=== PATIENT | female | born 1930 | race Two or more races ===

== ENCOUNTER 2017-05-30 21:48 | Emergency (ER) | payer OTHER ==
[~2017-05-30] VITALS: Ht 149.9 cm; Wt 55.8 kg
[~2017-05-30 21:48] MED LIST: ACID CONTROL20 MG; ASPIR 8181 MG; ATIVAN2 MG; CILOSTAZOL100 MG; FLUOXETINE DR90 MG; GLYCOPYRROLATE2 MG; LIPITOR20 MG; METFORMIN HYDR100 GM; NEURONTIN600 MG; PROZAC10 MG; SYNTHROID137 MCG; ULTRAM50 MG; VALSARTAN-HCTZ1 EAC1; VITACEL TABLET1 TAB
[2017-05-31] MEDS ORDERED: VISTARIL25 MG PO (03:05)
== END 2017-05-31 03:09 | disposition home or self-care (01) ==
LOC: ER 21:48
DX: I10 Essential (primary) hypertension (principal); F41.1 Generalized anxiety disorder

== ENCOUNTER 2017-08-08 23:32 | Emergency (ER) | payer OTHER ==
[~2017-08-08] VITALS: Ht 142.2 cm; Wt 63.5 kg
[~2017-08-08 23:32] MED LIST changes: +ATIVAN2 M1; +DIOVAN40 MG; +GLUCOPHAGE XR750 MG; +PROTONIX40 M1; +SYNTHROID75 MCG; +TRAMADOL HCL50 MG; +VISTARIL25 MG PO
[2017-08-09] MEDS ORDERED: KETO10TA2 PO (09:11)
== END 2017-08-09 09:26 | disposition home or self-care (01) ==
LOC: ER 23:32
DX: K57.90 Diverticulosis of intestine, part unspecified, without perforation or abscess without bleeding (principal); N20.0 Calculus of kidney

== ENCOUNTER 2017-10-08 12:11 | Emergency (ER) | payer OTHER ==
[~2017-10-08] VITALS: Ht 142.2 cm; Wt 63.5 kg
[~2017-10-08 12:11] MED LIST changes: +KETO10TA2 PO
== END 2017-10-08 23:34 | disposition home or self-care (01) ==
LOC: ER 12:11
DX: K29.60 Other gastritis without bleeding (principal); K21.9 Gastro-esophageal reflux disease without esophagitis

== ENCOUNTER 2017-10-09 12:56 | Emergency (ER) | payer OTHER ==
[~2017-10-09] VITALS: Ht 142.2 cm; Wt 63.5 kg
[2017-10-10] MEDS ORDERED: PEPCID AC20 MG PO (03:00)
[2017-10-10] MEDS ORDERED: GAS RELIEF125 MG PO (03:00)
[2017-10-10] MEDS ORDERED: DICY20TA PO (03:00)
[2017-10-10] MEDS ORDERED: INTESTINEX680 M1 PO (03:00)
== END 2017-10-10 03:32 | disposition home or self-care (01) ==
LOC: ER 12:56
DX: K57.90 Diverticulosis of intestine, part unspecified, without perforation or abscess without bleeding (principal); K21.9 Gastro-esophageal reflux disease without esophagitis; R10.31 Right lower quadrant pain

== ENCOUNTER 2019-11-13 10:45 | Emergency (ER) | payer OTHER ==
[~2019-11-13] VITALS: Ht 142.2 cm; Wt 60.8 kg
[~2019-11-13 10:45] MED LIST changes: +DICY20TA PO; +GAS RELIEF125 MG PO; +INTESTINEX680 M1 PO; +PEPCID AC20 MG PO
[2019-11-13] MEDS ORDERED: METFORMIN HCL750 MG PO (10:59)
[2019-11-13] MEDS ORDERED: METOPROLOL SUCC50 MG PO (10:59)
[2019-11-13] MEDS ORDERED: LOPERAMIDE2 MG PO (10:59)
[2019-11-13] MEDS ORDERED: ATORVASTATIN CA20 MG PO (10:59)
[2019-11-13] MEDS ORDERED: VASOFLEX HD CA1 EACH PO (10:59)
[2019-11-13] MEDS ORDERED: SYNTHROID112 MCG PO (11:00)
[2019-11-13] MEDS ORDERED: PEPCID AC20 MG PO (15:59)
[2019-11-13] MEDS ORDERED: DICY20TA PO (15:59)
== END 2019-11-13 16:04 | disposition home or self-care (01) ==
LOC: ER 10:45
DX: B34.9 Viral infection, unspecified (principal); K29.60 Other gastritis without bleeding; Z20.828 Contact with and (suspected) exposure to other viral communicable diseases

== ENCOUNTER 2020-08-06 10:48 | Outpatient (CLI) | payer OTHER ==
[~2020-08-06 10:48] MED LIST changes: +ATORVASTATIN CA20 MG PO; +LOPERAMIDE2 MG PO; +METFORMIN HCL750 MG PO; +METOPROLOL SUCC50 MG PO; +SYNTHROID112 MCG PO; +VASOFLEX HD CA1 EACH PO
== END 2020-08-06 10:58 | disposition home or self-care (01) ==
LOC: SONOGRAMA 10:48
PROVIDERS: ATTEND Family Medicine Adult Medicine
DX: E03.8 Other specified hypothyroidism (principal); E04.8 Other specified nontoxic goiter